=== PATIENT | female | born 2000 | race Caucasian/White ===

== ENCOUNTER 2021-12-29 19:28 | Emergency (ER) | payer OTHER ==
[2021-12-29 19:47] VITALS: BP 117/78; PULSE 88; TEMP 98; BMI 19.1
== END 2021-12-29 20:40 | disposition home or self-care (01) ==
LOC: FER 19:28
DX: S00.01XA Abrasion of scalp, initial encounter (principal); S06.0X0A Concussion without loss of consciousness, initial encounter; W22.8XXA Striking against or struck by other objects, initial encounter
CPT/HCPCS: 70450-TC; 81025; 99284-25

== ENCOUNTER 2022-04-30 22:52 | Emergency (ER) | payer OTHER ==
[2022-04-30 23:07] VITALS: BP 132/94; PULSE 88; RESP 16; TEMP 98.8; BMI 19.8
== END 2022-04-30 23:20 | disposition home or self-care (01) ==
LOC: FER 22:52
DX: G43.909 Migraine, unspecified, not intractable, without status migrainosus (principal)
CPT/HCPCS: 99281-25